=== PATIENT | female | born 1985 | race Caucasian/White ===

== ENCOUNTER 2016-12-02 07:05 | Emergency (ER) | payer MEDICAID ==
[~2016-12-02] VITALS: Ht 167.6 cm; Wt 68.0 kg
[2016-12-02] MEDS ORDERED: AZITHROMYCIN 500 MG TABLET PO ONE (08:15)
[2016-12-02] MEDS ORDERED: CEFTRIAXONE SODIUM 250 MG/VIAL IM ONE (08:15)
[2016-12-02] MEDS ORDERED: LIDOCAINE HCL 1% 20ML VIAL (Pyxis) INJ MC ONE (08:30)
[2016-12-02 08:59] LABS: HCG SCREEN NEGATIVE
[2016-12-02 09:24] LABS: CLARITY URINE CLOUDY (CLEAR); COLOR URINE YELLOW (YELLOW); GLUCOSE URINE NEGATIVE (NEGATIVE); KETONES URINE NEGATIVE (NEGATIVE); LEUKOCYTE ESTERASE URINE 3+ (NEGATIVE); NITRITE URINE NEGATIVE (NEGATIVE); OCCULT BLOOD URINE NEGATIVE (NEGATIVE); PROTEIN URINE 1+ (NEGATIVE)
[2016-12-02 10:42] VITALS: BP 121/60
[2016-12-04 06:18] LABS: CHLAMYDIA TRACHOMATIS NAA Negative (Negative); NEISSERIA GONORRHOEAE NAA Negative (Negative)
== END 2016-12-02 10:43 | disposition home or self-care (01) ==
LOC: ER 07:05
DX: Z20.2 Contact with and (suspected) exposure to infections with a predominantly sexual mode of transmission (principal); N39.0 Urinary tract infection, site not specified; T63.301A Toxic effect of unspecified spider venom, accidental (unintentional), initial encounter; L03.114 Cellulitis of left upper limb; Z90.89 Acquired absence of other organs; Y92.9 Unspecified place or not applicable
CPT/HCPCS: 81001; 84703; 87210; 87491; 87591; 96372; 99284; J0696; J3490; Z7610

== ENCOUNTER 2018-03-26 11:58 | Emergency (ER) | payer MEDICAID ==
[~2018-03-26] VITALS: Ht 149.9 cm; Wt 83.1 kg
[2018-03-26 21:20] LABS: CLARITY URINE CLEAR (CLEAR); COLOR URINE YELLOW (YELLOW); KETONES URINE NEGATIVE (NEGATIVE); LEUKOCYTE ESTERASE URINE NEGATIVE (NEGATIVE); NITRITE URINE NEGATIVE (NEGATIVE); OCCULT BLOOD URINE NEGATIVE (NEGATIVE); PH URINE 6.5 (4.5-8.0); PROTEIN URINE NEGATIVE (NEGATIVE); SPECIFIC GRAVITY URINE 1.015 (1.005-1.030); UROBILINOGEN URINE 0.2 E.U./dL (0.2-1.0)
[2018-03-26] MEDS ORDERED: LEVOFLOXACIN 500MG TABLET PO ONE (21:45)
[2018-03-26] MEDS ORDERED: PHENAZOPYRIDINE HCL 100MG TABLET PO ONE (21:45)
[2018-03-26 21:54] LABS: *AMPHETAMINES SCREEN URINE NEGATIVE (NEGATIVE); *BARBITURATES SCREEN URINE NEGATIVE (NEGATIVE)
[2018-03-26 21:55] LABS: *BENZODIAZEPINES SCREEN URINE NEGATIVE (NEGATIVE); *COCAINE SCREEN URINE NEGATIVE (NEGATIVE); CANNABINOID URINE SCREEN NEGATIVE (NEGATIVE); METHADONE URINE SCREEN NEGATIVE (NEGATIVE); OPIATES URINE SCREEN NEGATIVE (NEGATIVE); PHENCYCLIDINE URINE SCREEN NEGATIVE (NEGATIVE)
[2018-03-26 22:34] VITALS: BP 124/68
== END 2018-03-26 22:36 | disposition home or self-care (01) ==
LOC: ER 11:58
DX: R30.0 Dysuria (principal); I10 Essential (primary) hypertension; E66.9 Obesity, unspecified; Z68.37 Body mass index [BMI] 37.0-37.9, adult; Z90.49 Acquired absence of other specified parts of digestive tract; Z87.440 Personal history of urinary (tract) infections
CPT/HCPCS: 80305; 81025; 99283

== ENCOUNTER 2018-04-29 06:44 | Emergency (ER) | payer MEDICAID ==
[~2018-04-29] VITALS: Ht 162.6 cm; Wt 77.5 kg
[2018-04-29] MEDS ORDERED: DIPHENHYDRAMINE 25MG CAPSULE PO ONE (07:45)
[2018-04-29] MEDS ORDERED: FAMOTIDINE 20MG TABLET PO ONE (07:45)
[2018-04-29] MEDS ORDERED: DEXAMETHASONE 10 MG/ML VIAL IM ONE (07:45)
[2018-04-29 07:55] VITALS: BP 114/80
== END 2018-04-29 09:00 | disposition home or self-care (01) ==
LOC: ER 07:26
DX: T78.49XA Other allergy, initial encounter (principal); Z90.49 Acquired absence of other specified parts of digestive tract; Z98.890 Other specified postprocedural states
CPT/HCPCS: 96372; 99283; J1100; Q0163

== ENCOUNTER 2020-10-30 10:45 | Emergency (ER) | payer MEDICAID ==
[~2020-10-30] VITALS: Ht 165.1 cm; Wt 67.0 kg
[2020-10-30] MEDS ORDERED: CEFTRIAXONE SODIUM 500 MG/VIAL IM ONE (14:15)
[2020-10-30 14:38] LABS: CLARITY URINE CLOUDY (CLEAR); COLOR URINE DARK YELLOW (YELLOW); KETONES URINE 1+ (NEGATIVE); LEUKOCYTE ESTERASE URINE 2+ (NEGATIVE); NITRITE URINE POSITIVE (NEGATIVE); OCCULT BLOOD URINE NEGATIVE (NEGATIVE); PROTEIN URINE TRACE (NEGATIVE); SPECIFIC GRAVITY URINE 1.026 (1.005-1.030)
[2020-10-30] MEDS ORDERED: NITR100C MT (15:09)
[2020-10-30] MEDS ORDERED: DOXY150T5 MT (15:09)
[2020-10-30 15:28] VITALS: BP 122/70
[2020-11-01 17:06] LABS: NEISSERIA GONORRHOEAE NAA Negative (Negative)
== END 2020-10-30 15:29 | disposition home or self-care (01) ==
LOC: ER 10:45
DX: N39.0 Urinary tract infection, site not specified (principal); Z98.890 Other specified postprocedural states; Z90.49 Acquired absence of other specified parts of digestive tract
CPT/HCPCS: 81003; 81025; 87077; 87086; 87186; 87491; 87591; 96372; 99283; J0696

== ENCOUNTER 2021-10-11 06:58 | Emergency (ER) | payer MEDICAID ==
[~2021-10-11] VITALS: Ht 167.6 cm; Wt 59.0 kg
[~2021-10-11 06:58] MED LIST: DOXY150T5 MT; NITR100C MT
[2021-10-11 07:11] VITALS: BP 158/108
== END 2021-10-11 08:17 | disposition home or self-care (01) ==
LOC: ER 07:26
DX: T65.893A Toxic effect of other specified substances, assault, initial encounter (principal); H10.213 Acute toxic conjunctivitis, bilateral; Z88.6 Allergy status to analgesic agent; Y92.488 Other paved roadways as the place of occurrence of the external cause
CPT/HCPCS: 99283

== ENCOUNTER 2022-10-14 07:29 | Emergency (ER) | payer MEDICAID ==
[~2022-10-14] VITALS: Ht 162.6 cm; Wt 74.0 kg
[2022-10-14 08:03] VITALS: TEMP 97.9; O2SAT 99
[2022-10-14] MEDS ORDERED: IBUP-2029 MT (09:20)
[2022-10-14] MEDS ORDERED: AMOX1TAB16 MT (09:20)
[2022-10-14 09:30] VITALS: BP 126/45; PULSE 95; RESP 16
[2022-10-14] MEDS ORDERED: AMOXICILLIN/POTASSIUM CLAVULANATE 875/125MG TAB PO ONE (09:30)
[2022-10-14] MEDS ORDERED: IBUPROFEN 400MG TABLET PO ONE (09:30)
[2022-10-14] MEDS ORDERED: ACETAMINOPHEN 325MG TABLET PO ONE (09:30)
== END 2022-10-14 09:50 | disposition home or self-care (01) ==
LOC: ER 08:08
DX: H72.91 Unspecified perforation of tympanic membrane, right ear (principal); Z00.00 Encounter for general adult medical examination without abnormal findings
CPT/HCPCS: 81025; 99283

== ENCOUNTER 2023-09-05 00:59 | Emergency (ER) | payer MEDICAID ==
[~2023-09-05] VITALS: Ht 165.1 cm; Wt 77.0 kg
[~2023-09-05 00:59] MED LIST changes: +AMOX1TAB16 MT; +IBUP-2029 MT
[2023-09-05 02:00] VITALS: TEMP 98.8; O2SAT 98
[2023-09-05] MEDS ORDERED: PYR200 MT (06:26)
[2023-09-05] MEDS ORDERED: CEPH500T MT (06:26)
[2023-09-05] MEDS: CEPHALEXIN 250MG CAPSULE PO ONE (06:36)
[2023-09-05] MEDS: PHENAZOPYRIDINE HCL 100MG TABLET PO ONE (06:36)
[2023-09-05 06:42] VITALS: BP 124/76; PULSE 95; RESP 22
== END 2023-09-05 06:44 | disposition home or self-care (01) ==
LOC: ER 00:59
DX: N39.0 Urinary tract infection, site not specified (principal); Z88.6 Allergy status to analgesic agent
CPT/HCPCS: 82962; 99283

== ENCOUNTER 2024-08-16 03:31 | Emergency (ER) | payer MEDICAID ==
[~2024-08-16] VITALS: Ht 165.1 cm; Wt 81.0 kg
[~2024-08-16 03:31] MED LIST changes: +CEPH500T MT; -DOXY150T5 MT; +DOXY150T8 MT; +PYR200 MT
[2024-08-16 03:55] VITALS: O2SAT 100
[2024-08-16 04:03] VITALS: BP 147/88; PULSE 97; RESP 18; TEMP 36.8; O2SAT 100
== END 2024-08-16 05:30 | disposition home or self-care (01) ==
LOC: ER 03:31
DX: Z76.0 Encounter for issue of repeat prescription (principal); Z90.49 Acquired absence of other specified parts of digestive tract
CPT/HCPCS: 99281